=== PATIENT | male | born 1990 | race African-American/Black ===

== ENCOUNTER 2019-01-01 18:48 | Emergency (ER) | payer MEDICAID | END 2019-01-01 20:16 | disposition left against medical advice (07) | LOC: ER 18:48 | DX: Z53.21 Procedure and treatment not carried out due to patient leaving prior to being seen by health care provider (principal) ==

== ENCOUNTER 2019-01-02 15:28 | Emergency (ER) | payer MEDICAID ==
[~2019-01-02] VITALS: Ht 167.6 cm; Wt 71.0 kg
[2019-01-02] MEDS ORDERED: IBUPROFEN 600MG TABLET PO ONE (16:15)
[2019-01-02 17:00] VITALS: BP 101/64
== END 2019-01-02 17:01 | disposition home or self-care (01) ==
LOC: ER 15:36
DX: S80.01XA Contusion of right knee, initial encounter (principal); S20.219A Contusion of unspecified front wall of thorax, initial encounter; S60.222A Contusion of left hand, initial encounter; V47.5XXA Car driver injured in collision with fixed or stationary object in traffic accident, initial encounter; Y93.89 Activity, other specified; Y92.410 Unspecified street and highway as the place of occurrence of the external cause
CPT/HCPCS: 71111; 73130; 73562; 99283